=== PATIENT | female | born 1955 | race Caucasian/White ===

== ENCOUNTER 2017-03-20 07:11 | Emergency (ER) | payer MEDICARE, OTHER ==
--- NOTE | 2017-03-20 08:07 | ERNOTE ---
Trauma/Assault HPI - General Stated Complaint: FALL X 1 DAY Time Seen by Provider: 03/20/17 08:03 Source: patient Exam Limitations: no limitations - Immun/Allergies/Home Medications Immunizations: IMMUNIZATION HX Immunizations Up to Date Yes History of Influenza Vaccine No Hx Pneumococcal Vaccination No Allergies/Adverse Reactions: Allergies spironolactone Adverse Reaction (Unknown, Verified 10/20/14 10:22) Home Medications: HOME MEDICATIONS Albuterol Sulfate [Ventolin Hfa] 2 puff IH Q4H PRN 10/20/14 [Last Taken 10/18/15 ] Gabapentin [Gralise] 600 mg PO BID 10/20/14 [Last Taken 10/18/15] Lactulose [Enulose] 21 ml PO DAILY 10/20/14 [Last Taken 10/18/15] Lisinopril [Zestril] 40 mg PO DAILY 10/20/14 [Last Taken 10/18/15] Omeprazole [Prilosec] 20 mg PO DAILY 10/20/14 [Last Taken 10/18/15] Rifaximin [Xifaxan] 550 mg PO BID 10/20/14 [Last Taken 10/18/15] predniSONE [Prednisone] 50 mg PO DAILY #4 tablet 10/18/15 [Last Taken Unknown] Alprazolam [Xanax] 0.25 mg PO PRN 03/20/17 [Last Taken Unknown] Cyclobenzaprine HCl [Flexeril] 10 mg PO TID PRN #30 tablet 03/20/17 [Last Taken Unknown] Ibuprofen [Motrin] 600 mg PO TID PRN #30 tab 03/20/17 [Last Taken Unknown] - History of Present Illness Narrative: This patient fell onto a large piggyback approximately 4 days ago and now complains of pain and the neck upper back and anterior chest wall. She has some bruising on her anterior chest wall on the right side. - Patient's Past Medical History Patient History - Medical: Liver Disease Patient History - Cardiac/Respiratory: Hypertension, Sleep Apnea Patient History - Cancer: No Hx of Cancer Patient History - Surgical Procedures: Colon Resection, Tubal Ligation, Other Patient History - Other: None LMP (females 10-50): unknown - Family History Brother Family History - Medical: Other Father Family History - Medical: No pertinent hx Mother Family History - Medical: No pertinent hx Sister Family History - Medical: No pertinent hx Children Family History - Medical: No pertinent hx Family History - Cardiac/Respiratory: COPD - Social History Living Situations: spouse Abuse History: No History of abuse Psych History: No pertinent hx Smoking Status: Current every day smoker Have you smoked in the past 12 months: Yes Do you dip or chew tobacco: No Alcohol Use: sober Drug Use: cocaine, meth - Immunizations Immunizations Up to Date: Yes Hx Pneumococcal Vaccination: No History of Influenza Vaccine: No Physical Exam - Physical Exam General Appearance: Present: wd/wn, alert, no apparent distress Head Exam: Present: normal inspection Ears, Nose, Throat: Present: normal ENT inspection Neck: Present: normal inspection, other - patient does have a small area of abrasion underneath of her chin there is no crepitus or deformity or ecchymoses noted Respiratory: Present: no respiratory distress, normal breath sounds, no accessory muscle use - chest wall is slightly tender to the right side of the sternal border patient does have bruising of the right breast noted, lungs clear Cardiovascular/Chest: Present: regular rate, rhythm, no murmur, normal peripheral pulses Gastrointestinal/Abdominal: Present: normal bowel sounds, nontender, nondistended, soft ED Progress - Vital Signs Patient's Vital Signs:: I have reviewed the patient's vital signs. Vital Signs: Vital Signs 03/20/17 07:17 Temperature 36.7 C Pulse Rate 75 Respiratory 20 Rate Blood Pressure 156/91 O2 Sat by Pulse 91 Oximetry - X-Ray X-Ray #1 X-Ray: ribs - Progress/Reassessment Chief Complaint: Fall Plan - Plan Plan: This patient had a bad fall 4 days ago however there appears to be no permanent disability from this fall patient does have pain all over and her pain will be addressed and treated. I'll up with her primary care physician as needed. Departure Clinical Impression: Myalgia - Departure Disposition: Home self-care Condition: Good Instructions: Muscle Pain, Adult Referrals: Dora Toney DO [Primary Care Provider] - Prescriptions: Cyclobenzaprine HCl [Flexeril] 10 mg PO TID PRN #30 tablet PRN Reason: Pain Ibuprofen [Motrin] 600 mg PO TID PRN #30 tab PRN Reason: Pain
[2017-03-20 09:01] VITALS: BP 148/89
== END 2017-03-20 08:58 | disposition home or self-care (01) ==
LOC: ER 07:11
DX: M79.1 Myalgia (principal); F17.200 Nicotine dependence, unspecified, uncomplicated

== ENCOUNTER 2017-06-25 10:21 | Emergency (ER) | payer MEDICARE, OTHER ==
[2017-06-25] MEDS ORDERED: METOPROLOL TARTRATE 1 MG/ML AMPUL IV ONE ×2 (10:35→11:09)
--- NOTE | 2017-06-25 10:40 | ERNOTE ---
Medical Problem HPI - Narrative Date of Service: 06/25/17 - General Chief Complaint: General Assessment Time Seen by Provider: 06/25/17 10:24 Source: patient Exam Limitations: no limitations - Immun/Allergies/Home Medications Immunizations: IMMUNIZATION HX Immunizations Up to Date Yes History of Influenza Vaccine No Hx Pneumococcal Vaccination No Allergies/Adverse Reactions: Allergies spironolactone Adverse Reaction (Unknown, Verified 06/25/17 10:30) Home Medications: HOME MEDICATIONS Albuterol Sulfate [Ventolin Hfa] 2 puff IH Q4H PRN 10/20/14 [Last Taken 10/18/15 ] Gabapentin [Gralise] 600 mg PO DAILY 10/20/14 [Last Taken 10/18/15] Lactulose [Enulose] 30 ml PO DAILY 10/20/14 [Last Taken 10/18/15] Lisinopril [Zestril] 20 mg PO DAILY 10/20/14 [Last Taken 10/18/15] Omeprazole [Prilosec] 40 mg PO DAILY 10/20/14 [Last Taken 10/18/15] Rifaximin [Xifaxan] 550 mg PO BID 10/20/14 [Last Taken 10/18/15] Cyclobenzaprine HCl [Flexeril] 10 mg PO TID PRN #30 tablet 03/20/17 [Last Taken Unknown] Clonidine HCl [Catapres] 0.1 mg PO BID #10 tab 06/25/17 [Last Taken Unknown] Famotidine [Pepcid] 40 mg PO HS 06/25/17 [Last Taken Unknown] Montelukast Sodium [Singulair] 10 mg PO DAILY 06/25/17 [Last Taken Unknown] Venlafaxine HCl [Venlafaxine HCl ER] 37.5 mg PO DAILY 06/25/17 [Last Taken Unknown] traMADol HCL [Tramadol HCl] 50 mg PO BID 06/25/17 [Last Taken Unknown] - History of Present History Narrative: Pt. comes in with c/o elevated blood pressure for two days. Pt. was recently started on effexor a week a go then consulted her PCP yesterday and her Lisinopril was increased to 40mg a day without any relief. Pt. BP has been ranging 190 sys to 140 sys. Pt. has a note from her psychiatrist stating to monitor for Blood pressure greater than 150 systolic. Pt. states that she has a headache but denies any further symptoms, alleviating factors, or aggravating factors. Review of Systems - Review of Systems Constitutional: Present: no symptoms reported. Absent: recent illness, fever, chills, weakness, fatigue, malaise EYE: Present: no symptoms reported ENT: Present: no symptoms reported Respiratory: Present: no symptoms reported. Absent: shortness of breath, cough , wheezing Cardiology: Present: no symptoms reported. Absent: chest pain, palpitations, edema Gastrointestinal/Abdominal: Present: no symptoms reported. Absent: nausea, vomiting, diarrhea Genitourinary: Present: no symptoms reported. Absent: frequency, dysuria, hematuria, decreased urinary output Musculoskeletal: Present: no symptoms reported. Absent: back pain, neck pain, joint pain Skin: Present: no symptoms reported. Absent: rash, change in color Neurological: Present: no symptoms reported. Absent: headache, dizziness/light- headedness, numbness, tingling Endocrine: Present: no symptoms reported. Absent: flushing, intolerance to heat , intolerance to cold, increased hunger, increased thirst, increased urine, unexplained weight gain, unexplained weight loss Psych: Present: no symptoms reported. Absent: anxiety, depressed All Other Systems: All systems neg except as marked - Patient's Past Medical History Patient History - Medical: Anxiety, Bipolar, Chronic Pain, Fibromyalgia, Liver Disease Patient History - Cardiac/Respiratory: Hypertension, Sleep Apnea Patient History - Cancer: No Hx of Cancer Patient History - Surgical Procedures: Colon Resection, Tubal Ligation Patient History - Other: None - Family History Brother Family History - Medical: Other Father Family History - Medical: No pertinent hx Mother Family History - Medical: No pertinent hx Sister Family History - Medical: No pertinent hx Children Family History - Medical: No pertinent hx Family History - Cardiac/Respiratory: COPD - Social History Living Situations: home Abuse History: No History of abuse Psych History: No pertinent hx Alcohol Use: none Drug Use: none - Immunizations Immunizations Up to Date: Yes Hx Pneumococcal Vaccination: No History of Influenza Vaccine: No Physical Exam - Physical Exam General Appearance: Present: wd/wn, alert, anxious Head Exam: Present: normal inspection, no evidence of injury Eye Exam: Normal inspection: bilateral, PERRL: bilateral, EOMI: bilateral Ears, Nose, Throat: Present: normal ENT inspection, normal pharynx Neck: Present: normal inspection, nontender. Absent: lymphadenopathy (R), lymphadenopathy (L) Respiratory: Present: no respiratory distress, normal breath sounds, no accessory muscle use, chest nontender, lungs clear. Absent: crackles, rales, rhonchi, wheezing Cardiovascular/Chest: Present: regular rate, rhythm, no murmur, normal peripheral pulses Gastrointestinal/Abdominal: Present: normal bowel sounds, nontender, nondistended, soft, no organomegaly. Absent: rebound, McBurney sign, Obturator sign, Lao sign, Psoas sign, mass, hepatomegaly Back Exam: Present: normal inspection, normal range of motion, no CVA tenderness , no vertebral tenderness Extremity Exam: Present: normal inspection, non-tender, normal range of motion, no edema. Absent: pedal edema, calf tenderness, bony tenderness Neurological Exam: Present: alert, oriented, no motor/sensory deficits, other - appears anxious and figiting Skin Exam: Present: normal color, warm/dry. Absent: pallor, skin rash ED Progress - Date and Time Seen: Date and Time: 06/25/17 13:42 Discussed with nurse for physician field service consultant for Dr Suarez and they are going to return call with answer to whether pt. needs to taper effexor or can just stop and if ok to start back on Lexapro. Will have pt. start on Clonidine 0.1mg PO BID and have pt. follow up with Dr Mullins while awaiting transfer of care to Internal medicine physician of her choice. 06/25/17 14:23 Dr field service consultant fro Dr Suarez states to discontinue effexor and not start any thing else and Dr Suarez will call pt. on Wednesday to change medication regimen. Will also continue to have pt. monitor her blood pressure. - Results and Orders Patient's Lab Results:: I have reviewed the patient's lab results. Results and Orders: Abnormal Lab Results 06/25/17 06/25/17 Range/Units 10:40 10:40 RDW 14.8 H (11.5-14.0) % MPV 10.1 H (6.0-9.5) fl Sodium 145 H (132-142) mmol/L Plasma Sodium 145 H (130-142) mmol/L Est GFR (Non-Af Amer) 49 L (60-130) mL/min BUN/Creatinine Ratio 5.8 L (9.0-21.6) ALT 16 L (19-67) U/L Alkaline Phosphatase 236 H (50-170) U/L Pt. with known liver cirrhosis - Vital Signs Patient's Vital Signs:: I have reviewed the patient's vital signs. Vital Signs: Vital Signs 06/25/17 10:24 Temperature 36.1 C L Pulse Rate 84 Respiratory 12 Rate Blood Pressure 184/98 O2 Sat by Pulse 94 Oximetry - EKG EKG: NSR EKG read: Reviewed by me EKG Comments: interp by Dr Fox - X-Ray X-Ray #1 X-Ray: chest Interpretation: Reviewed by me X-ray Comments: no acute - Progress/Reassessment Chief Complaint: General Assessment Departure Clinical Impression: Hypertension Qualifiers: Hypertension type: other secondary hypertension Qualified Code(s): I15.8 - Other secondary hypertension - Departure Disposition: Home self-care Condition: Good Instructions: Managing Your High Blood Pressure Additional Instructions: Please stop Effexor keep all other medications the same and continue to monitor blood pressures. Please follow up with Dr Mullins on Wednesday at 2:30 pm for follow up until you find an Internal medicine doctor of your choice. Please do not take Clonidine if your blood pressure is less than 110 systolic and please return to the ER if your blood pressure is consistently over 170 systolic. Prescriptions: Clonidine HCl [Catapres] 0.1 mg PO BID #10 tab
[2017-06-25 10:55] LABS: Hematocrit 44.1 % (37.0-47.0); Hemoglobin 14.2 gm/dL (12.5-16.0); Mean Cell Volume 90.2 fl (78-100); Mean Corpuscular Hgb Conc 32.2 g/dl (32-36); Mean Platelet Volume 10.1 fl (6.0-9.5); Neutrophil # 4.7 K/mm3 (1.3-6.0); Neutrophil % 61.6 % (42-75.0); Platelet Count 202 K/mm3 (150-450); Red Blood Count 4.89 M/mm3 (4.2-5.4); Red Cell Distribution Width 14.8 % (11.5-14.0); White Blood Count 7.6 K/mm3 (4.0-10.5)
[2017-06-25 11:04] LABS: Urine Bilirubin Negative (NEGATIVE); Urine Blood Negative /ul (NEGATIVE); Urine Ketone Negative (NEGATIVE); Urine Nitrite Negative (NEGATIVE); Urine Protein Negative (NEGATIVE); Urine Urobilinogen Normal (NORMAL); Urine pH 5.5 pH (5.0-7.0)
[2017-06-25 11:21] LABS: ALT 16 U/L (19-67); AST 16 U/L (0-48); Albumin * 3.7 gm/dl (3.4-5.0); Alkaline Phosphatase * 236 U/L (50-170); Anion Gap 10.3 mmol/L (6.8-13.8); BNP * 118 pg/mL (5-205); BUN/Creatinine Ratio 5.8 (9.0-21.6); Bilirubin, Total 0.4 mg/dL (0.0-1.1); Blood Urea Nitrogen 7 mg/dL (3-23); Ca. Corrected For Albumin 8.7 mg/dL (8.4-10.2); Calcium * 8.8 mg/dL (7.9-10.9); Carbon Dioxide 32.4 mmol/L (24-32.6); Chloride 106 mmol/L (97-106); Glucose * 100 mg/dL (70-110); Potassium 3.7 mmol/L (3.4-4.6); Sodium 145 mmol/L (132-142); Total Protein 7.5 gm/dL (6.2-8.2); Troponin I Less than 0.017 ng/ml (0.00-0.10)
[2017-06-25 11:27] LABS: Urine Appearance Clear; Urine Color Yellow
[2017-06-25 11:28] LABS: Urine Bacteria None Seen; Urine RBC None Seen /hpf (0-5); Urine WBC None Seen /hpf (0-5)
[2017-06-25] MEDS ORDERED: NORMAL SALINE 1,000 ML IV ONE (11:45)
[2017-06-25] MEDS ORDERED: CLONIDINE HCL 0.1 MG TABLET ONE (11:48)
[2017-06-25] MEDS: CLONIDINE HCL 0.1 MG TABLET PO ONE ×2 (11:51→11:58)
[2017-06-25] MEDS ORDERED: hydrALAZINE HCL 20 MG/ML VIAL IV ONE (12:13)
[2017-06-25] MEDS ORDERED: hydrALAZINE HCL 20 MG/ML VIAL ONE (12:14)
[2017-06-25] MEDS ORDERED: diphenhydrAMINE HCL 50 MG/ML VIAL IV ONE (12:42)
[2017-06-25] MEDS ORDERED: ONDANSETRON HCL/PF 2 MG/ML VIAL IV ONE (12:42)
[2017-06-25] MEDS ORDERED: KETOROLAC TROMETHAMINE 30 MG/ML VIAL IV ONE (12:42)
[2017-06-25] MEDS ORDERED: diphenhydrAMINE HCL 50 MG/ML VIAL ONE (12:43)
[2017-06-25] MEDS ORDERED: ONDANSETRON HCL/PF 2 MG/ML VIAL ONE (12:43)
[2017-06-25] MEDS ORDERED: KETOROLAC TROMETHAMINE 30 MG/ML VIAL ONE (12:43)
[2017-06-25 14:16] VITALS: BP 140/84
== END 2017-06-25 14:45 | disposition home or self-care (01) ==
LOC: ER 10:21
DX: I15.8 Other secondary hypertension (principal)
CPT/HCPCS: 36415; 71020; 80053; 81001; 83880; 84484; 85025; 93005; 96374; 96375; 99284; J2405